=== PATIENT | male | born 1960 | race Caucasian/White ===

== ENCOUNTER → 2016-12-20 | Outpatient (CLI) | payer BC ==
[~2016-12-20] MED LIST: ASPI81TA21 PO; FENO1TAB25 PO; FLNIN NAE; GLC/500 PO; GLC500 PO; HYDR-5688 PO; LACT1TAB4 PO; LSN25 PO; OMEP20CA9 PO; ROSU40TA PO; SNQ/50 PO; SULF800T23 PO; TAMS0.4C38 PO; TNR25 PO
[2016-12-20 12:55] LABS: ALT/SGPT 39 U/L (12-78); BLOOD UREA NITROGEN 23 mg/dl (7-18); BUN/CREATININE RATIO 16.6 (10-20); CALCIUM 9.1 mg/dl (8.5-10.1); CARBON DIOXIDE 28 mmol/L (21-32); CHLORIDE 104 mmol/L (98-107); CHOLESTEROL 149 mg/dl (0-200); GLUCOSE 127 mg/dl (70-99); POTASSIUM 4.2 mmol/L (3.5-5.1); SODIUM 138 mmol/L (136-145); TRIGLYCERIDES 180 mg/dl (0-150); VERY LOW DENSITY LIPOPROT CALC 36 mg/dl
[2016-12-20 12:58] LABS: ALB/GLOB RATIO 1.3 (0.9-2); ALKALINE PHOSPHATASE 41 U/L (45-117); AST/SGOT 16 U/L (15-37); CHOLESTEROL/HDL RATIO 4.3; HDL CHOLESTEROL 35 mg/dl; LDL CHOLESTEROL CALCULATED 78 mg/dl
[2016-12-20 13:11] LABS: ESTIMATED AVERAGE GLUCOSE 134 mg/dl; HA1C FLAG Normal (Normal)
== END | disposition home or self-care (01) ==
LOC: C.LABPVFM 09:16
PROVIDERS: ATTEND Family Medicine
DX: Z00.00 Encounter for general adult medical examination without abnormal findings (principal); I25.10 Atherosclerotic heart disease of native coronary artery without angina pectoris; E11.9 Type 2 diabetes mellitus without complications; N40.1 Benign prostatic hyperplasia with lower urinary tract symptoms; E78.5 Hyperlipidemia, unspecified; I10 Essential (primary) hypertension

== ENCOUNTER → 2017-02-19 | Outpatient (CLI) | payer BC | END | disposition home or self-care (01) | LOC: C.LABPVFM 08:55 | PROVIDERS: ATTEND Urology | DX: R30.0 Dysuria (principal); N40.1 Benign prostatic hyperplasia with lower urinary tract symptoms; R33.9 Retention of urine, unspecified ==

== ENCOUNTER → 2017-02-28 | Outpatient (CLI) | payer BC ==
[2017-02-28 12:55] LABS: ALKALINE PHOSPHATASE 48 U/L (45-117); ALT/SGPT 43 U/L (12-78); AST/SGOT 18 U/L (15-37)
== END | disposition home or self-care (01) ==
LOC: C.LABPVFM 09:53
PROVIDERS: ATTEND Urology
DX: N20.0 Calculus of kidney (principal)

== ENCOUNTER → 2017-06-19 | Outpatient (CLI) | payer BC ==
[2017-06-19 13:18] LABS: HEMOGLOBIN A1C 6.7 % (4.5-5.6)
[2017-06-19 13:39] LABS: ALBUMIN 4.5 gm/dl (3.4-5.0); ALT/SGPT 53 U/L (12-78); AST/SGOT 17 U/L (15-37); BLOOD UREA NITROGEN 23 mg/dl (7-18); CALCIUM 9.1 mg/dl (8.5-10.1); CARBON DIOXIDE 28 mmol/L (21-32); CREATININE 1.51 mg/dl (0.60-1.40); GLUCOSE 136 mg/dl (70-99); POTASSIUM 3.8 mmol/L (3.5-5.1); SODIUM 137 mmol/L (136-145)
[2017-06-19 13:42] LABS: ALKALINE PHOSPHATASE 49 U/L (45-117); CHOLESTEROL 159 mg/dl (0-200); LDL CHOLESTEROL CALCULATED 83 mg/dl; TOTAL PROTEIN 7.9 gm/dl (6.4-8.2)
== END | disposition home or self-care (01) ==
LOC: C.LABPVFM 09:52
PROVIDERS: ATTEND Family Medicine
DX: E11.9 Type 2 diabetes mellitus without complications (principal); I10 Essential (primary) hypertension; N20.1 Calculus of ureter; E78.5 Hyperlipidemia, unspecified

== ENCOUNTER → 2017-06-28 | Outpatient (CLI) | payer BC | END | disposition home or self-care (01) | LOC: C.LABPVFM 17:46 | PROVIDERS: ATTEND Family Medicine | DX: E11.9 Type 2 diabetes mellitus without complications (principal); I10 Essential (primary) hypertension; N20.2 Calculus of kidney with calculus of ureter; E78.5 Hyperlipidemia, unspecified ==

== ENCOUNTER → 2017-08-07 | Outpatient (CLI) | payer BC ==
--- NOTE | 2017-08-07 15:25 | DIAGNOSTIC IMAGING REPORT ---
R SHOULDER MIN 2 VIEWS ROUTINE CLINICAL HISTORY: RIGHT SHOULDER PAIN COMPARISON: None. DISCUSSION: No fractures or dislocations are visualized. There are no erosive or destructive changes. There are no visible particular calcifications. Minimal degenerative changes are present within the AC joint. IMPRESSION: Minimal degenerative changes within the AC joint. No fractures identified. No destructive lesions are visualized. Electronically signed by: Willem Alvarado M.D. 08/07/2017 3:24 PM Dictated Date/Time: 08/07/2017 3:23 PM
== END | disposition home or self-care (01) ==
LOC: C.RADPV 15:03
PROVIDERS: ATTEND Family Medicine
DX: M25.511 Pain in right shoulder (principal)

== ENCOUNTER → 2017-12-20 | Outpatient (CLI) | payer BC ==
[~2017-12-20] MED LIST changes: +ASPI-319 PO; -ASPI81TA21 PO
--- NOTE | 2017-12-20 10:07 | DIAGNOSTIC IMAGING REPORT ---
C-SPINE ROUTINE 4 OR 5 VIEWS HISTORY: 57 years-old Male Neck pain acute neck and right shoulder pain without reported trauma COMPARISON: None available TECHNIQUE: 5 views of the cervical spine FINDINGS: There are 7 nonrib-bearing cervical type vertebral segments present. Mild posterior intervertebral disc space narrowing at C5-C6 and C6-C7. Multilevel uncovertebral spurring with mild facet arthrosis. No acute fracture or subluxation. There is suggestion of mild left-sided foraminal narrowing at C4-C5 and C5-C6. No prevertebral soft tissue swelling. The lung apices appear clear. IMPRESSION: 1. No acute fracture or subluxation. 2. Mild degenerative changes as above. The above report was generated using voice recognition software. It may contain grammatical, syntax or spelling errors. Electronically signed by: Sixto Mills M.D. 12/20/2017 10:06 AM Dictated Date/Time: 12/20/2017 10:04 AM
[2017-12-20 12:44] LABS: BASO % 0.3 %; BASO ABS # 0.02 K/uL (0-0.2); EOS % 1.7 %; EOS ABS # 0.12 K/uL (0-0.5); HEMATOCRIT 38.4 % (42-52); HEMOGLOBIN 12.9 g/dL (14.0-18.0); IG# 0.03 K/uL (0.00-0.02); LYMPH % 15.3 %; LYMPH ABS # 1.11 K/uL (1.2-3.4); MEAN CELL VOLUME 88.9 fL (80-100); MEAN CORPUSCULAR HEMOGLOBIN 29.9 pg (25-34); MEAN CORPUSCULAR HGB CONC 33.6 g/dl (32-36); MEAN PLATELET VOLUME 9.7 fL (7.4-10.4); MONO % 8.8 %; MONO ABS # 0.64 K/uL (0.11-0.59); NEUT % 73.5 %; NEUT ABS # 5.35 K/uL (1.4-6.5); PLATELET COUNT 324 K/uL (130-400); RED CELL DISTRIBUTION WIDTH CV 13.5 % (11.5-14.5); WHITE BLOOD COUNT 7.27 K/uL (4.8-10.8)
[2017-12-20 13:14] LABS: HEMOGLOBIN A1C 7.3 % (4.5-5.6)
[2017-12-20 13:19] LABS: ALBUMIN 3.8 gm/dl (3.4-5.0); ALKALINE PHOSPHATASE 58 U/L (45-117); ALT/SGPT 45 U/L (12-78); AST/SGOT 20 U/L (15-37); BLOOD UREA NITROGEN 22 mg/dl (7-18); CARBON DIOXIDE 25 mmol/L (21-32); CHOLESTEROL 121 mg/dl (0-200); CREATININE 1.34 mg/dl (0.60-1.40); GLUCOSE 143 mg/dl (70-99); LDL CHOLESTEROL CALCULATED 55 mg/dl; PHOSPHORUS 2.9 mg/dl (2.5-4.9); SODIUM 134 mmol/L (136-145); TOTAL PROTEIN 7.8 gm/dl (6.4-8.2)
== END | disposition home or self-care (01) ==
LOC: C.LABPVFM 09:31
PROVIDERS: ATTEND Family Medicine
DX: M54.2 Cervicalgia (principal); E11.42 Type 2 diabetes mellitus with diabetic polyneuropathy; R79.89 Other specified abnormal findings of blood chemistry

== ENCOUNTER → 2018-01-06 | Outpatient (CLI) | payer BC ==
[~2018-01-06] MED LIST changes: +ALLO300T2 PO; +APIX1TAB3 PO; +ATEN50TA8 PO; +FENO145T26 PO; -FENO1TAB25 PO; +FINA5TAB PO; -HYDR-5688 PO; -LACT1TAB4 PO; +LISI-729 PO; -LSN25 PO; +MULTTAB58 PO; +SNQ/25 PO; -SULF800T23 PO; -TAMS0.4C38 PO; -TNR25 PO
[2018-01-06 13:15] LABS: BLOOD UREA NITROGEN 20 mg/dl (7-18); CALCIUM 9.1 mg/dl (8.5-10.1); CARBON DIOXIDE 26 mmol/L (21-32); CREATININE 1.43 mg/dl (0.60-1.40); GLUCOSE 174 mg/dl (70-99); POTASSIUM 3.8 mmol/L (3.5-5.1); SODIUM 137 mmol/L (136-145)
== END | disposition home or self-care (01) ==
LOC: C.LABPVFM 08:46
PROVIDERS: ATTEND Family Medicine
DX: E11.9 Type 2 diabetes mellitus without complications (principal)

== ENCOUNTER → 2018-01-07 | Outpatient (CLI) | payer BC | END | disposition home or self-care (01) | LOC: C.LABPVFM 08:51 | PROVIDERS: ATTEND Nurse Practitioner | DX: E11.9 Type 2 diabetes mellitus without complications (principal); R79.89 Other specified abnormal findings of blood chemistry ==

== ENCOUNTER 2022-04-10 09:56 | Observation (INO) ==
--- NOTE | 2022-04-10 10:52 | History & Physical Bridge Note ---
Date of Service April 10, 2022 History & Physical Bridge Note I have examined the patient, reviewed the History & Physical and in the interval since the performance of the History & Physical I have noted the following changes of clinical significance: no changes noted
--- NOTE | 2022-04-10 10:53 | Pre Anesthesia Assessment ---
Date of Service April 10, 2022 Pre Sedation Assessment Vital Signs Temp Pulse Resp BP Pulse Ox O2 Del Method 04/10/22 10:06 98.4 F 71 16 140/90 97 Room Air Cardiovascular RRR, no murmur, no edema Respiratory normal respiratory effort, lungs clear to auscultation Pre-Sedation Airway Assessment Smoking Status: Never smoker Hx Sleep Apnea: Yes Short, Thick Neck: No Thyromental Distance: > or= 3.5 Finger Breadths Oral Cavity: + WNL Mallampati Class: III ASA: ASA3 NPO Status Date of Last Intake of Fluids: 04/10/22 Time of Last Intake of Fluids: 07:00 Date of Last Intake of Solid Food: 04/09/22 Procedure Planning Contraindications for Sedation: none Current Medications Reviewed: Yes Notes The planned sedation has been discussed with the patient. Informed Consent was obtained. I have identified the patient, determined the appropriateness of sedation and have assessed the patient immediately prior to the procedure. All medicine(s) and interventions are by my order.
[2022-04-10] MEDS ORDERED: MIDAZOLAM HCL 1 MG/ML 2ML VIAL ONE ×3 (11:08→12:45)
[2022-04-10] MEDS ORDERED: NITROGLYCERIN/D5W 100MCG/ML 20ML SYR ONE (11:08)
[2022-04-10] MEDS ORDERED: niCARdipine HCL INJ 2.5 MG/ML 10 ML AMP ONE (11:08)
[2022-04-10] MEDS ORDERED: fentaNYL citrate 100 MCG/2 ML VIAL ONE ×2 (11:08→12:44)
[2022-04-10] MEDS ORDERED: HEPARIN (PORCINE) 1000 UNIT/ML 10 ML (CATH LAB USE ONLY) ONE ×2 (11:10→12:18)
[2022-04-10] MEDS ORDERED: ADENOSINE IV SOLN 3 MG/ML 20 ML VIAL IV ONE (11:58)
[2022-04-10] MEDS ORDERED: diphenhydrAMINE 50 MG/ML VIAL ONE (12:39)
[2022-04-10] MEDS ORDERED: CLOPIDOGREL BISULFATE 300 MG TAB ONE (13:29)
[2022-04-10] MEDS ORDERED: NITROGLYCERIN SL 0.4 MG/TAB TAB SL PRN (13:38)
[2022-04-10] MEDS ORDERED: ONDANSETRON INJ 2 MG/ML 2 ML VIAL IV PRN (13:38)
[2022-04-10] MEDS ORDERED: ALBUTEROL HFA 8 GM INHALER INH PRN (13:43)
[2022-04-10] MEDS ORDERED: SODIUM CHLORIDE 0.9% 1000ML 1,000 ML IV SCH (13:45)
[2022-04-10] MEDS ORDERED: GLUCOSE 40% GEL 15 GM TUBE PO PRN (13:46)
[2022-04-10] MEDS ORDERED: GLUCAGON FOR INJ 1 MG VIAL SQ PRN (13:46)
[2022-04-10] MEDS ORDERED: GLUCOSE 10 TAB/TUBE PO PRN (13:46)
[2022-04-10] MEDS ORDERED: CARBOHYDRATES FOR HYPOGLYCEMIA PO PRN (13:46)
[2022-04-10] MEDS ORDERED: DEXTROSE 50% 50 ML SYRINGE IV PRN (13:46)
--- NOTE | 2022-04-10 13:49 | Post Anesthesia Assessment ---
Date of Service April 10, 2022 Post Sedation Assessment Vital Signs Temp Pulse Resp BP Pulse Ox O2 Del Method 04/10/22 13:30 62 17 124/76 96 Room Air 04/10/22 10:06 98.4 F 71 16 140/90 97 Room Air Recovery Score Activity: Moves 4 extremities Respiration: Deep Breath/Cough Circulation: +/-20% PreAnes Value Consciousness: Fully Awake Oxygen Saturation: > 92% On Room Air Post Anesthesia Score: 10 Discharge Sedation Level of Care: Fast Track Phase II Post Sedation Plan On clinical assessment, the patient appears to have tolerated the sedation without complications. Patient is recovering as anticipated. Patient will continue to be monitored by nursing and may be discharged when sedation discharge criteria are met per below protocol. Upon Completions of procedure up to 15 minutes continue every 5 minute vital signs and the P.A.R. score; then discharge to a Phase I or Fast Track to Phase II per the following guidelines: * Discharge Patient to appropriate Phase II area if PAR is 8 or greater or return to pre- procedure baseline. The post - procedure orders will be as directed. * If PAR score is less than 8 or not return to pre-procedure baseline then patient will follow Phase I monitoring till PAR is reached for Phase II. The Phase I may be done in procedure room or may call to secure a Phase I area. * If naloxone or flumazenil are used for reversal, hold in Phase I for continued monitoring from when last reversal dose was given for a minimum of 60 minutes or longer pending the nurse and/or physician discretion of patient condition before discharge to Phase II. Please call the Sedation Physician to re-evaluate and complete post-note for discharge to Phase II area. Do NOT discharge from procedure sedation or Phase 1 until post- sedation evaluation note is complete by procedure /sedation MD Sedation Discharge Instructions to be given to the patient at discharge to home.
--- NOTE | 2022-04-10 14:07 | Cardiac Catheterization ---
[facility] Data: Court Security Officer Cardiac Status Clinical evaluation leading to the procedure CAD Presenation: Unstable angina Anginal Classification: CCS III Diagnostic Physicians Name: Richie Chao MD Closure Device Recommendations: PCI without planned CABG Cardiac Cath Procedure Full Procedure Date April 10, 2022 Pre-Procedure Diagnosis Pre-Procedure Diagnosis: Angina AUC Score AUC Score: 7 Post-Procedure Diagnosis Post-Procedure Diagnosis: Severe CAD, Successful PCI and Normal Intracardiac Pressures Procedure(s) Performed Procedure(s) Performed: Coronary Angiography and Left Heart Cath Thermoplastic Technician Ricihe Chao MD Manager Of Distribution(s) Showers Estimated Blood Loss Estimated Blood Loss: 15 Medication(s) Medication(s): Clopidogrel, Fentanyl, Heparin, Lidocaine 1%, Nicardipine, Nitroglycerin and Versed Summary of Findings Indication: Chest pain, dizziness, prior indeterminate stress. History of coronary artery disease with prior anterior [place] in 2010 Access: 6 Fr right radial artery Catheters: [place], [place] left 3.5 guide Findings: LM -Short, normal caliber, no significant disease LAD -medium caliber calcified,, 80% proximal in-stent restenosis, 70% mid stenosis at bifurcation with medium D2. Remainder of LAD without significant d isease and wraps around apex. Circumflex -medium caliber, 20 to 30% mid segment stenosis. Medium left PLB without significant disease. RCA -dominant, medium caliber, 50% mid segment stenosis, distal luminal irregularities PDA, PLB without significant disease. LVEDP -16 -- iFR/PCI -- Antithrombotic therapy: Heparin, clopidogrel Procedure: RCA cannulated with [place] left 3.5 guide [place] wire placed into distal RCA ACIST FFR catheter placed across mid RCA stenosis Pd/Pa 0.98 Wire/catheter removed, repeat angiography showed no complications. LAD cannulated with [place] left 3.5 guide Medical Detail Representative 50 wire placed into distal LAD ACIST FFR catheter placed across proximal LAD restenosis. Unable to pass catheter across mid stenosis. Pd/Pa 0.82 Pre-procedure flow [place] 3 Proximal, mid lesions predilated with 2.5 compliant balloon Dilated mid LAD lesion stented with 3.0 x 26 mm [place] drug-eluting stent overlapping distal end of prior stent Post stent deployment flow in D2 compromised Rewired with whisper wire, stent struts, proximal D2 dilated with 2.0 and 2.5 balloons Mid LAD stent postdilated with 3.5 NC Old proximal LAD stent dilated with 3.5 NC [place] IVUS catheter placed into mid LAD. Pullback revealed mild, calcified disease just distal to stent with no apparent edge complication. Stent well apposed, well-expanded. Residual restenosis and old proximal LAD stent Second [place] (3.0 x 12 mm Ronnie) placed to proximal ID, overlapping prior stent Stent postdilated with 3.5 NC IC vasodilators administered for spasm Post procedure [place] 3 flow, stents well expanded with minimal residual stenosis. Residual ostial disease in D2 but [place]-3 flow in diagonal. Arterial Closure: TR band Summary: 1. Multivessel coronary artery disease -80% proximal LAD in-stent restenosis, 70% mid LAD disease at bifurcation with D2 50% mid RCA (IFR negative, 0.98). 2. Normal intracardiac filling pressure 3. Successful PCI of mid LAD with drug-eluting stent overlapping distal aspect of prior stent (3.0 x 26 mm [place]; postdilated with 3.5 NC). -Angioplasty of jailed D2 ostium with 2.5 balloon 4. Successful PCI of proximal LAD in-stent restenosis with new overlapping drug-eluting stent (3.0 x 12 mm [place]; postdilated with 3.5 NC). Recommendations: To PCU for continued monitoring Loaded with clopidogrel [address] Officer Triple therapy while admitted, long-term dual therapy with clopidogrel, DOAC for at least next year. Continue statin, and ASCVD risk factor modification Consult cardiac Rehab Hemodynamics Rest Ao:: 124/75/96 Final Ao: 109/59/78 LV: 129/16 Recommendations Recommendations: PCI without planned CABG Specimens Specimens: None Radiation Exposure (mGy) 5201 Contrast (mls) 120 Anesthesia Moderate 0553-3457 Procedural Complication(s) None Disposition PCU I attest to the content of the Intraoperative Record and any orders documented therein. Any exceptions are noted below. [employer] Card Cath Procedure Codes Cardiac Catheterization Procedure 1: Cardiovascular Cath Procedures: 78413 Coronaries and LHC (+/-LV) Procedure 2: Cardiovascular Cath Procedures: 77928 (Doppler) Pressure Wire Procedure 3: Cardiovascular Cath Procedures: 62063 (Doppler) Pressure Wire Addl vessel Therapeutic Services & Ancillary Procedure 1: Cardiovascular Tx and Anc Procedures: 03937 IV Ultrasound (Coronary or Gr aft) Moderate Sedation Procedure 1: Sedation/Anesthesia: 01449 Mod Sedation by the same physician;Init15 Min Child Age 5 & Up Procedure 2: Sedation/Anesthesia: 51312 Mod Sedation by the same physician; Ea [id number] Minutes Stenting Procedure 1: Cardiovascular Stent Procedures: 69134 Perc transcatheter placement of intracoronary stent(s), with ang PG Care Time/CCT Total # of Minutes Spent Total Time Spent with Patient: Total time spent is greater than 50% in coordination of care (as documented) at patient's floor/unit and/or counseling patient:
[2022-04-10] MEDS: INSULIN ASPART PER UNIT SC SCH ×2 (17:49→20:40)
[2022-04-10] MEDS: DABIGATRAN ETEXILATE 75 MG CAP PO SCH (20:38)
[2022-04-10] MEDS: METOPROLOL TARTRATE 25 MG TAB PO SCH (20:39)
[2022-04-10] MEDS ORDERED: DOXEPIN HCL 75 MG CAPSULE PO SCH (21:00)
[2022-04-11 06:52] LABS: Basophils # (auto) 0.02 K/uL (0-0.2); Basophils % (auto) 0.4 %; Eosinophils # (auto) 0.14 K/uL (0-0.50); Eosinophils % (auto) 2.5 %; Hematocrit (blood only) 34.7 % (40.1-51.0); Hemoglobin 11.7 g/dl (14.0-18.0); Immature Granulocytes # (auto) 0.01 K/uL (0.00-0.02); Immature Granulocytes % (auto) 0.2 %; Lymphocytes % (auto) 19.6 %; Mean Corpuscular Hemoglobin 30.1 pg (25.0-34.0); Mean Corpuscular Hgb Conc 33.7 g/dL (32.0-36.0); Mean Corpuscular Volume 89.2 fL (80.0-100.0); Mean Platelet Volume 9.7 fL (9.4-12.4); Monocytes # (auto) 0.73 K/uL (0.24-0.82); Neutrophils % (auto) 64.3 %; Platelet Count 232 K/uL (130-400); RDW Coefficient of Variation 13.2 % (11.5-14.5); RDW Standard Deviation 43.4 fL (36.4-46.3); Red Blood Count 3.89 M/uL (4.63-6.08)
[2022-04-11 07:15] LABS: BUN Creatinine Ratio 15.4 (10-20); Calcium 8.9 mg/dl (8.5-10.1); Creatinine Clr Calc Pharmacy 61.5 ml/min; Est GFR (African American) 63.7 ml/min; Potassium 4.3 mmol/L (3.5-5.1)
[2022-04-11] MEDS: METOPROLOL TARTRATE 25 MG TAB PO SCH (08:01)
[2022-04-11] MEDS: DABIGATRAN ETEXILATE 75 MG CAP PO SCH (08:01)
[2022-04-11] MEDS: INSULIN ASPART PER UNIT SC SCH (08:24)
[2022-04-11] MEDS ORDERED: ASPIRIN 81 MG ECTAB PO SCH (09:00)
[2022-04-11] MEDS ORDERED: LOSARTAN POTASSIUM 25 MG TAB PO SCH (09:00)
[2022-04-11] MEDS ORDERED: PANTOprazole 40 MG TAB PO SCH (09:00)
[2022-04-11] MEDS ORDERED: ROSUVASTATIN CALCIUM 20 MG TAB PO SCH (09:00)
[2022-04-11] MEDS ORDERED: LEVOTHYROXINE SODIUM 150 MCG TABLET PO SCH (09:00)
[2022-04-11] MEDS ORDERED: ALFUZOSIN HCL 10 MG TAB PO SCH (09:00)
[2022-04-11] MEDS ORDERED: FENOFIBRATE NANOCRYSTALLIZED 145 MG TABLET PO SCH (09:00)
[2022-04-11] MEDS ORDERED: FINASTERIDE 5 MG TAB PO SCH (09:00)
[2022-04-11] MEDS ORDERED: FLUTICASONE PROPIONATE NA SPR 16 GM BTL SCH (09:00)
[2022-04-11] MEDS ORDERED: allopurinoL 300 MG TAB PO SCH (09:00)
[2022-04-11] MEDS ORDERED: CLOPIDOGREL BISULFATE 75 MG TAB PO SCH (09:00)
--- NOTE | 2022-04-11 13:21 | Discharge Summary ---
Date of Service April 11, 2022 Admission HPI Per Admitting Provider Mr. Allen is a 62-year-old man with a history of coronary artery disease post anterior [place] with prior LAD stent back in 2010 who has been having issues with intermittent dizzy spells and one recent episode of chest symptoms with associated diaphoresis, nausea reminiscent of prior [place]. In the setting of prior symptoms with pharmacologic stress test decision to proceed with cardiac catheterization. Discharge Data Procedures Performed Operation Date: 04/10/22 11:00 Actual Procedures s Cineradiography w/Routine Exam - Ted Chao MD p Cath, Left with Cors and Vent - Ted Chao MD s IVUS Coronary Single Vessel - Ted Chao MD s Fraction Flow [place] Addl Madisyn - Ted Chao MD s Fraction Flow [place] SGL Ves - Ted Chao MD p Drug Eluting Stent SGl Vessel - Ted Chao MD s POBA SGL Vessel - Ted Chao MD Hospital Course (1) Coronary artery disease: Plan Patient underwent [facility]/coronary angiography via right radial artery on 04/10/2022. Findings: 1. Multivessel coronary artery disease -80% proximal LAD in-stent restenosis, 70% mid LAD disease at bifurcation with D2 50% mid RCA (IFR negative, 0.98). 2. Normal intracardiac filling pressure 3. Successful PCI of mid LAD with drug-eluting stent overlapping distal aspect of prior stent (3.0 x 26 mm [place]; postdilated with 3.5 NC). -Angioplasty of jailed D2 ostium with 2.5 balloon 4. Successful PCI of proximal LAD in-stent restenosis with new overlapping drug-eluting stent (3.0 x 12 mm [place]; postdilated with 3.5 NC). Post procedure patient admitted for observation to telemetry service. During admission no additional chest symptoms, dizziness. No arrhythmia on telemetry. On hospital day 2 was feeling well. Postprocedural labs stable. No apparent access site complications. Discharged home on dual therapy with clopidogrel and prior Pradaxa. Can resume metformin tomorrow. Follow-up with cardiology in 2 weeks. Interested in cardiac rehab, will discuss further at follow-up. Discharge Instructions Home Medications multivitamin 1 tab PO DAILY 02/11/18 [History Confirmed 04/10/22] blood sugar diagnostic (OneTouch Ultra Blue Test Strip) #10 ea 04/14/19 [History Confirmed 04/09/22] coenzyme Q10 200 mg capsule 200 mg PO DAILY 11/30/20 [History Confirmed 04/10/22] saw palmetto 500 mg capsule 900 mg PO DAILY 11/30/20 [History Confirmed 04/10/22] sildenafil 100 mg tablet 100 mg PO .COMPLEX #10 tabs 02/22/21 [Rx Confirmed 04/10/22] metoprolol tartrate 25 mg tablet 25 mg PO BID #180 tabs 04/25/21 [Rx Confirmed 04/10/22] metformin 1,000 mg tablet 1,000 mg PO BID #180 tabs 07/18/21 [Rx Confirmed 04/10/22] albuterol sulfate 90 mcg/actuation aerosol inhaler 2 puff inhalation QID PRN shortness of breath or wheezing #6.7 grams 07/27/21 [Rx Confirmed 04/10/22] fluticasone propionate 50 mcg/actuation nasal spray,suspension (Allergy Relief (fluticasone)) 1 spray intranasal DAILY #9.9 grams 07/27/21 [Rx Confirmed 04/10/22] pantoprazole 40 mg tablet,delayed release 40 mg PO DAILY #90 tabs 10/20/21 [Rx Confirmed 04/10/22] losartan 25 mg tablet 25 mg PO DAILY #30 tabs 11/17/21 [Rx Confirmed 04/10/22] doxepin 75 mg capsule 75 mg PO HS #30 caps 12/18/21 [Rx Confirmed 04/10/22] glimepiride 2 mg tablet 2 mg PO QAM #90 tabs 12/26/21 [Rx Confirmed 04/10/22] dabigatran etexilate 150 mg capsule (Pradaxa) 150 mg PO BID #180 caps 01/16/22 [Rx Confirmed 04/10/22] fenofibrate nanocrystallized 145 mg tablet 145 mg PO DAILY #90 tabs 01/23/22 [Rx Confirmed 04/10/22] Synthroid 150 mcg tablet (levothyroxine) 150 mcg PO DAILY #90 tabs 02/07/22 [Rx Confirmed 04/10/22] alfuzosin 10 mg tablet,extended release 24 hr (Uroxatral) 10 mg PO DAILY #90 tabs 10/17/22 [Rx Confirmed 04/10/22] allopurinol 300 mg tablet 300 mg PO DAILY #90 tabs 03/05/22 [Rx Confirmed 04/10/22] finasteride 5 mg tablet (Proscar) 5 mg PO DAILY #90 tabs 03/05/22 [Rx Confirmed 04/10/22] rosuvastatin 40 mg tablet (Crestor) 40 mg PO DAILY #90 tabs 03/16/22 [Rx Confirmed 04/10/22] clopidogrel 75 mg tablet 75 mg PO QAM #30 tabs 04/11/22 [Rx] nitroglycerin 0.4 mg sublingual tablet (Nitrostat) 0.4 mg sublingual PRN PRN chest pain #30 tabs 04/11/22 [Rx] Coding Level of Care Code 27987 OBS Care - Discharge Diagnoses Coronary artery disease I25.10 Coronary Disease-Associated Artery/Lesion type: [place] artery [place] vs. transplanted heart: [place] heart Associated angina: without angina
--- NOTE | 2022-04-12 06:27 | Electrocardiogram Report ---
Test Reason : Blood Pressure : / mmHG Vent. Rate : 060 BPM Atrial Rate : 060 BPM P-R Int : 176 ms QRS Dur : 080 ms QT Int : 410 ms P-R-T Axes : 041 005 -04 degrees QTc Int : 410 ms Normal sinus rhythm Normal ECG When compared with ECG of 03-JAN-2018 01:12, No significant change was found Confirmed by Percy Sharma ([id number]) on 04/12/2022 6:27:02 AM Referred By: Ted Chao Confirmed By:Percy Sharma
== END 2022-04-11 10:34 | disposition home or self-care (01) ==
LOC: 2S 09:56 → CC 09:56